=== PATIENT | female | born 1995 | race African-American/Black ===

== ENCOUNTER 2017-01-04 14:26 | Emergency (ER) | payer SELFPAY ==
[~2017-01-04] VITALS: Ht 165.1 cm; Wt 86.2 kg
[~2017-01-04 14:26] MED LIST: HYDR-971 PO; ONDA4TAB10 SL; ONDA4TAB7 PO; SULF1TAB24 PO
[2017-01-04 15:31] VITALS: BP 118/64
[2017-01-04] MEDS ORDERED: CEPH-264 PO (15:55)
[2017-01-04] MEDS ORDERED: MUPI15CR TP (15:55)
--- NOTE | 2017-01-04 15:56 | PHYS DOC ---
Past Medical History Past Medical History: No Pertinent History Past Surgical History: No Surgical History Additional Information: nonsmoker Alcohol Use: None Drug Use: None Adult General Chief Complaint Chief Complaint: SKIN RASH/ABSCESS HPI HPI Patient is a 21 year old female who presents with rash on the left ring finger for 2 months. She states that yesterday it became more swollen and had purulent drainage from the rash. She denies any injury to the finger. She has not had any fevers. She has a history of eczema and states that cortisone cream usually resolves any rash or itching. She had been applying cortisone cream to the rash without improvement. She does not have a PCP. Review of Systems Review of Systems Constitutional: Denies fever or chills. [] Musculoskeletal: Denies back pain or joint pain. [] Integument: Reports left ring finger rash and drainage. Neurologic: Denies focal weakness or sensory changes. [] Allergies Allergies Allergies Coded Allergies Type Severity Reaction Last Updated Verified No Known Drug Allergies 07/07/16 No Physical Exam Physical Exam Constitutional: Well developed, well nourished, no acute distress, non-toxic appearance. [] HENT: Normocephalic, atraumatic, oropharynx moist. [] Eyes: PERRLA, EOMI, conjunctiva normal, no discharge. [] Skin: Warm, dry, no erythema. There is a macular rash on the dorsum of the left ring finger proximal phalanx with honey-colored crusting. There is no surrounding erythema or induration. There is no abscess. Extremities: No tenderness, ROM intact, no edema. Distal pulses equal bilaterally. Neurovascular intact. Neurologic: Alert and oriented X 3, normal motor function, normal sensory function, no focal deficits noted. [] Psychologic: Affect normal, judgement normal, mood normal. [] Current Patient Data Vital Signs Vital Signs Date Time Temp Pulse Resp B/P Pulse Ox O2 Delivery O2 Flow Rate FiO2 01/04/17 15:31 98.1 80 16 96 Room Air 98.1 EKG EKG [] Radiology/Procedures Radiology/Procedures [] Course & Med Decision Making Course & Med Decision Making Pertinent Labs and Imaging studies reviewed. (See chart for details) [] Dragon Disclaimer Dragon Disclaimer This electronic medical record was generated, in whole or in part, using a voice recognition dictation system. Departure Departure Impression: Primary Impression: Impetigo Disposition: 01 HOME, SELF-CARE Condition: STABLE Referrals: NO PCP (PCP) Patient Instructions: Impetigo Additional Instructions: You were seen for a rash that has become infected. Please apply the antibiotic ointment as directed. Please complete all of the prescribed antibiotic pills, even if the rash is improving. Please follow-up if the rash is worsening or not improving after 48-72 hours on the medication. Return to the emergency department if you have any new or concerning symptoms. Scripts Mupirocin Calcium (Bactroban Cream)15 Gm Cream..g.1 Eduardo TP TID #30 GM Prov:DEBORAH CROWLEY 01/04/17 Cephalexin (Keflex)500 Mg Capsule1 Cap PO BID #14 CAP Prov:DEBORAH CROWLEY 01/04/17 DEBORAH CROWLEY Jan 04, 2017 15:55
== END 2017-01-04 16:10 | disposition home or self-care (01) ==
LOC: ER 14:26
DX: L01.00 Impetigo, unspecified (principal)
CPT/HCPCS: 99283

== ENCOUNTER 2017-01-30 04:11 | Emergency (ER) | payer SELFPAY ==
[~2017-01-30] VITALS: Ht 165.1 cm; Wt 86.2 kg
[~2017-01-30 04:11] MED LIST changes: +CEPH-264 PO; +MUPI15CR TP
[2017-01-30 04:19] VITALS: BP 137/72
--- NOTE | 2017-01-30 04:26 | PHYS DOC ---
Past Medical History Past Medical History: No Pertinent History Past Surgical History: No Surgical History Alcohol Use: None Drug Use: None Adult General Chief Complaint Chief Complaint: OTHER COMPLAINTS [facility] Patient is a 22 year old female who presents with scalp itching and flaking for the past week. Patient was got her hair braided yesterday and tonight the itching was intense therefore she came in for evaluation. Patient denies any fevers or chills. Patient has no other complaints. Pertinent physical exam findings: Flaking rash to the scalp with a clear exudate ED course: Patient was seen and evaluated in the emergency room and told that she had tinea capitis and will prescribe shampoo to help with the symptoms. ED decision-making: After reviewing the chart, chief complaint, history of present illness, past medical history, physical exam do not believe the patient has a life- threatening rash wanting further workup and admission at this time. I believe the patient has tinea capitis which can be treated with a shampoo and follow-up with her PCP. Patient is stable for discharge. Additional verbal discharge instructions were provided to the patient and that if symptoms get worse or any new symptoms arise that are worrisome to the patient she is return to the emergency room immediately. Review of Systems Review of Systems Constitutional: Denies fever or chills [] Eyes: Denies change in visual acuity, redness, or eye pain [] HENT: Denies nasal congestion or sore throat [] Respiratory: Denies cough or shortness of breath [] Cardiovascular: No additional information not addressed in [facility] [] GI: Denies abdominal pain, nausea, vomiting, bloody stools or diarrhea [] : Denies dysuria or hematuria [] Musculoskeletal: Denies back pain or joint pain [] Integument: Scalp rash [] Allergies Allergies Allergies Coded Allergies Type Severity Reaction Last Updated Verified No Known Drug Allergies 07/07/16 No Physical Exam Physical Exam Constitutional: Well developed, well nourished, no acute distress, non-toxic appearance. [] HENT: Normocephalic, atraumatic, bilateral external ears normal, oropharynx moist, no oral exudates, nose normal. [] Eyes: PERRLA, EOMI, conjunctiva normal, no discharge. [] Neck: Normal range of motion, no tenderness, supple, no stridor. [] Cardiovascular:Heart rate regular rhythm, no murmur [] Lungs & Thorax: Bilateral breath sounds clear to auscultation [] Abdomen: Bowel sounds normal, soft, no tenderness, no masses, no pulsatile masses. [] Skin: Dry flaky rash to the scalp with a clear exudate [] Back: No tenderness, no CVA tenderness. [] Extremities: No tenderness, no cyanosis, no clubbing, ROM intact, no edema. [] Neurologic: Alert and oriented X 3, normal motor function, normal sensory function, no focal deficits noted. [] Psychologic: Affect normal, judgement normal, mood normal. [] Current Patient Data Vital Signs Vital Signs Date Time Temp Pulse Resp B/P (MAP) Pulse Ox O2 Delivery O2 Flow Rate FiO2 01/30/17 04:19 98.0 95 16 96 Room Air 98.0 EKG EKG [] Radiology/Procedures Radiology/Procedures [] Course & Med Decision Making Course & Med Decision Making Pertinent Labs and Imaging studies reviewed. (See chart for details) [] Dragon Disclaimer Dragon Disclaimer This electronic medical record was generated, in whole or in part, using a voice recognition dictation system. Departure Departure Impression: Primary Impression: Tinea capitis Disposition: HOME, SELF-CARE Condition: STABLE Referrals: NO PCP (PCP) Patient Instructions: Ringworm - Scalp, [id number] Additional Instructions: Please follow-up with her family doctor in one to 2 days Scripts Selenium Sulfide (SELENIUM SULFIDE) 180 Ml Shampoo 180 ML TP 2 times a week for 14 Days, #1 MISC Used 2 times a week for 2 weeks Prov: SHADI OH DO 01/30/17 SHADI OH DO January 30, 2017 04:26
[2017-01-30] MEDS ORDERED: SELE180S3 TP (04:33)
== END 2017-01-30 04:40 | disposition home or self-care (01) ==
LOC: ER 04:11
DX: B35.0 Tinea barbae and tinea capitis (principal)
CPT/HCPCS: 99283

== ENCOUNTER 2017-02-01 09:49 | Emergency (ER) | payer BC ==
[~2017-02-01 09:49] MED LIST changes: +SELE180S3 TP
[2017-02-01 10:20] VITALS: BP 113/68
--- NOTE | 2017-02-01 10:51 | PHYS DOC ---
Past Medical History Past Medical History: No Pertinent History Past Surgical History: No Surgical History Alcohol Use: None Drug Use: None Adult General Chief Complaint Chief Complaint: SKIN RASH/ABSCESS HPI HPI Patient is a 22 year old presents emergency department stating that she has a rash on her chest and her face. Patient denies runny nose and congestion. She does state that she's had a cough. She also states that she's had left eye irritation. Patient denies fever, chills. Review of Systems Review of Systems Constitutional: Denies fever or chills [] Eyes: Denies change in visual acuity, redness, or eye pain [] HENT: Denies nasal congestion or sore throat [] Respiratory: Denies cough or shortness of breath [] Cardiovascular: No additional information not addressed in HPI [] GI: Denies abdominal pain, nausea, vomiting, bloody stools or diarrhea [] : Denies dysuria or hematuria [] Musculoskeletal: Denies back pain or joint pain [] Integument: rash denies skin lesions [] Neurologic: Denies headache, focal weakness or sensory changes [] Endocrine: Denies polyuria or polydipsia [] Allergies Allergies Allergies Coded Allergies Type Severity Reaction Last Updated Verified No Known Drug Allergies 07/07/16 No Physical Exam Physical Exam Constitutional: Well developed, well nourished, no acute distress, non-toxic appearance. [] HENT: Normocephalic, atraumatic, bilateral external ears normal, oropharynx moist, no oral exudates, nose normal. [] Eyes: PERRLA, EOMI, conjunctiva normal, no discharge. [] Neck: Normal range of motion, no tenderness, supple, no stridor. [] Cardiovascular:Heart rate regular rhythm, no murmur [] Lungs & Thorax: Bilateral breath sounds clear to auscultation [] Skin: Warm, dry, no erythema, Rash noted to the upper chest and face that appears red and raised with no drainage or discharge noted. Back: No tenderness Extremities: No tenderness, no cyanosis, no clubbing, ROM intact, no edema. [] Neurologic: Alert and oriented X 3, normal motor function, normal sensory function, no focal deficits noted. [] Psychologic: Affect normal, judgement normal, mood normal. [] Current Patient Data Vital Signs Vital Signs Date Time Temp Pulse Resp B/P (MAP) Pulse Ox O2 Delivery O2 Flow Rate FiO2 02/01/17 10:20 98.2 96 18 98 Room Air 98.2 EKG EKG [] Radiology/Procedures Radiology/Procedures [] Course & Med Decision Making Course & Med Decision Making Pertinent Labs and Imaging studies reviewed. (See chart for details) Rapid strep was negative. Patient will be encouraged to use Benadryl 25 mg every 6 hours. She was instructed that this medication will cause drowsiness do not take any be alert and oriented. Patient was also instructed she will be provided with prednisone. She is instructed to keep the areas clean and dry. Patient was provided with signs and symptoms to return back to the emergency department. Patient agrees with discharge instructions treatment regimens and follow-up recommendations. [] Dragon Disclaimer Dragon Disclaimer This electronic medical record was generated, in whole or in part, using a voice recognition dictation system. Departure Departure Impression: Primary Impression: Contact dermatitis Disposition: HOME, SELF-CARE Condition: STABLE Referrals: NO PCP (PCP) Patient Instructions: Contact Dermatitis, [id number] Additional Instructions: Activity as tolerated. Medication as prescribed. Benadryl 25 mg every 6 hours as needed for itching and irritation. This medication will cause drowsiness do not take any be alert and oriented. Areas clean and dry and cool to help decrease the irritation. Follow-up through primary care physician as needed in the next 3-5 days. Return back to emergency prior signs symptoms of become worse. Scripts Prednisone (PREDNISONE) 20 Mg Tablet 40 MG PO DAILY, #14 TAB Prov: DOMINGO NIELSEN APRN 02/01/17 DOMINGO NIELSEN APRN February 01, 2017 10:51
[2017-02-01] MEDS ORDERED: PRED20TA PO (11:16)
[2017-02-01 12:16] LABS: NEGATIVE OBC STREP NEG; POSITIVE OBC STREP POS
== END 2017-02-01 11:27 | disposition home or self-care (01) ==
LOC: ER 10:49
DX: L25.9 Unspecified contact dermatitis, unspecified cause (principal)
CPT/HCPCS: 87070; 87880; 99283

== ENCOUNTER 2017-02-21 10:59 | Emergency (ER) | payer BC ==
[~2017-02-21] VITALS: Ht 165.1 cm; Wt 86.2 kg
[~2017-02-21 10:59] MED LIST changes: +PRED20TA PO
[2017-02-21 11:06] VITALS: BP 127/58
--- NOTE | 2017-02-21 11:49 | PHYS DOC ---
Past Medical History Past Medical History: No Pertinent History Past Surgical History: No Surgical History Alcohol Use: None Drug Use: None Adult General Chief Complaint Chief Complaint: SKIN RASH/ABSCESS HPI HPI Patient is a 22 year old female with history of eczema who presents today with a rash she has had for roughly 2 weeks. Patient states she was seen in the ED 2 weeks ago and was on prednisone which helped with a rash for couple days. Patient denies any fever. Review of Systems Review of Systems Constitutional: Denies fever or chills [] Eyes: Denies change in visual acuity, redness, or eye pain [] Musculoskeletal: Denies back pain or joint pain [] Integument: rash Neurologic: Denies headache, focal weakness or sensory changes [] Endocrine: Denies polyuria or polydipsia [] Allergies Allergies Allergies Coded Allergies Type Severity Reaction Last Updated Verified No Known Drug Allergies 07/07/16 No Physical Exam Physical Exam Constitutional: Well developed, well nourished, no acute distress, non-toxic appearance. [] HENT: Normocephalic, atraumatic, bilateral external ears normal, oropharynx moist, no oral exudates, nose normal. [] Skin: Patient has mild amount of dry eczema rash on her forehead, antecubital joints, right ring finger, she has infected area on the webspace between the left ring finger middle finger and pinky finger. The area appears to have both fungal and bacterial infection from eczema. Back: No tenderness, no CVA tenderness. [] Extremities: No tenderness, no cyanosis, no clubbing, ROM intact, no edema. [] Neurologic: Alert and oriented X 3, normal motor function, normal sensory function, no focal deficits noted. [] Psychologic: Affect normal, judgement normal, mood normal. [] Current Patient Data Vital Signs Vital Signs Date Time Temp Pulse Resp B/P (MAP) Pulse Ox O2 Delivery O2 Flow Rate FiO2 02/21/17 11:06 98.4 99 18 99 Room Air 98.4 EKG EKG [] Radiology/Procedures Radiology/Procedures [] Course & Med Decision Making Course & Med Decision Making Pertinent Labs and Imaging studies reviewed. (See chart for details) Patient has contact dermatitis rash from eczema. A couple areas on her left hand appeared to have both fungal and bacterial infection especially in between her web spaces in her fingers. Patient will be discharged with instructions to follow-up with the apartment rental clerk. I gave her a tapering dose of prednisone, given a prescription for clotrimazole/betamethasone cream, cephalexin and Benadryl. Flakito Disclaimer Flakito Disclaimer This electronic medical record was generated, in whole or in part, using a voice recognition dictation system. Departure Departure Impression: Primary Impression: Contact dermatitis and eczema due to cause Additional Impressions: Skin infection, bacterial Cutaneous candidiasis Disposition: 01 HOME, SELF-CARE Condition: STABLE Referrals: NO PCP (PCP) ZAKIA ANN MD Follow-up with the provided apartment rental clerk in 2 weeks Patient Instructions: Contact Dermatitis, [id number], Cutaneous Candidiasis, Eczema Additional Instructions: You were seen for contact dermatitis rash from eczema. You have developed infection in some of the areas. Use the medications provided as ordered. Follow- up with the provided apartment rental clerk in the next 7-14 days. Scripts Cephalexin (CEPHALEXIN) 500 Mg Tablet 1 TAB PO QID, #40 TAB Prov: SUZI MUNOZ APRN 02/21/17 Famotidine (PEPCID) 20 Mg Tablet 20 MG PO DAILY, #14 TAB Prov: SUZI MUNOZ APRN 02/21/17 Prednisone (PREDNISONE) 10 Mg Tablet 10 MG PO UD for PREDNISONE TAPER, #39 TAB 0 Refills Take 3 tablets by mouth twice a day for 3 days, then take 2 tablets by mouth twice a day for 3 days, then take 1 tablet by mouth twice a day for 3 days, then take 1 tablet by mouth daily x 3 days, then stop. Prov: SUZI MUNOZ APRN 02/21/17 Diphenhydramine Hcl (BENADRYL) 25 Mg Capsule 1 CAP PO Q4HRS W/A, #30 CAP 1 Refill Prov: SUZI MUNOZ APRN 02/21/17 Clotrimazole/Betamethasone Dip (CLOTRIMAZOLE-BETAMETHASONE CRM) 15 Gm Cream..g. 1 YUE TP BID, #30 GM 3 Refills Prov: SUZI MUNOZ APRN 02/21/17 Problem Qualifiers Primary Impression: Contact dermatitis and eczema due to cause Contact dermatitis type: allergic Contact dermatitis trigger: other trigger Qualified Codes: L23.89 - Allergic contact dermatitis due to other agents SUZI MUNOZ APRN Feb 21, 2017 11:49
[2017-02-21] MEDS ORDERED: FAMO-63 PO (11:59)
[2017-02-21] MEDS ORDERED: PRED-220 PO (11:59)
[2017-02-21] MEDS ORDERED: DIPH25CA58 PO (11:59)
[2017-02-21] MEDS ORDERED: CEPH500T PO (11:59)
[2017-02-21] MEDS ORDERED: CLOT15CR5 TP (11:59)
== END 2017-02-21 12:09 | disposition home or self-care (01) ==
LOC: ER 10:59
DX: L23.89 Allergic contact dermatitis due to other agents (principal); B37.9 Candidiasis, unspecified; L08.9 Local infection of the skin and subcutaneous tissue, unspecified; B96.89 Other specified bacterial agents as the cause of diseases classified elsewhere; D71 Functional disorders of polymorphonuclear neutrophils
CPT/HCPCS: 99283